=== PATIENT | female | born 1985 | race Caucasian/White ===

== ENCOUNTER 2023-05-03 04:03 | Emergency (ER) | payer OTHER ==
[~2023-05-03] VITALS: Ht 167.6 cm; Wt 54.4 kg
[2023-05-03] MEDS ORDERED: ALBU18HF2 INH (07:28)
[2023-05-03] MEDS ORDERED: PRED50TA PO (07:28)
[2023-05-03] MEDS ORDERED: predniSONE 50 MG TABLET PO ONE (07:30)
[2023-05-03] MEDS ORDERED: predniSONE 20 MG TABLET ONE (07:36)
[2023-05-03 07:44] VITALS: BP 119/71; TEMP 97.9; O2SAT 100
== END 2023-05-03 07:45 | disposition home or self-care (01) ==
LOC: ER 04:05
DX: J45.909 Unspecified asthma, uncomplicated (principal); Z88.1 Allergy status to other antibiotic agents
CPT/HCPCS: 99283; J7512